=== PATIENT | male | born 1960 | race Caucasian/White ===

== ENCOUNTER 2021-06-20 07:37 | Emergency (ER) | payer SELFPAY ==
[2021-06-20] MEDS ORDERED: Sodium Chloride 0.9% 10 ML Syringe FLUSH PRN (07:59)
[2021-06-20 09:10] LABS: ANION GAP 16.4 mEq/L (7-13); CHLORIDE,CL 105 mmol/L (98-107); PTT,PARTIAL THROMBOPLSTIN TIME 26.3 SEC (22.0-34.0); SODIUM,NA 142 mmol/L (136-145)
== END 2021-06-20 09:40 | disposition home or self-care (01) ==
LOC: DL.ED 07:37
DX: I82.432 Acute embolism and thrombosis of left popliteal vein (principal); M79.2 Neuralgia and neuritis, unspecified; Z79.01 Long term (current) use of anticoagulants
CPT/HCPCS: 36415; 80053; 82550; 83605; 85025; 85610; 85730; 93971; 99284; 99284-25